=== PATIENT | female | born 1955 | race Caucasian/White ===

== ENCOUNTER 2016-12-31 08:17 | Emergency (ER) | payer BC ==
[~2016-12-31] VITALS: Ht 170.2 cm; Wt 60.0 kg
[~2016-12-31 08:17] MED LIST: ALENDRONATE70 MG PO; ASPIRIN 8181 MG PO; ATENOL/CHLOR1 TA2 PO; BACTRIM DS1 TAB PO; BOOSTRIX IM; CIPROFLOXACN500 MG PO; CLINDAMYCIN300 M1 PO; DOXYCYCL HYC100 MG PO; MECLIZINE25 MG PO; MULTI VITAMN PO; PREDNISONE20 MG PO; PROVENTIL HFA IN; SINGULAIR10 MG PO; TET/DIP TOX1 ML IM; ZOCOR20 M1 PO
[2016-12-31 09:21] LABS: HEMATOCRIT 42.9 % (37.0-47.0); IMMATURE GRANULOCYTES 0.3 % (0.0-1.0); MEAN CELL VOLUME 89.2 fL CALC (80.0-100.0); MEAN CORPUSCULAR HGB 29.1 pG CALC (26.0-32.0); MEAN CORPUSCULAR HGB CONC 32.6 g/L CALC (32.0-36.0); NEUT# 5.44 thou/uL (2.00-7.15); RED BLOOD COUNT 4.81 mill/uL (4.20-5.60); RED CELL DISTRI WIDTH 14.8 % (11.5-15.5)
[2016-12-31 10:05] LABS: ALBUMIN 4.5 g/dL (3.2-5.0); ALKALINE PHOSPHATASE 67 u/l (38-126); ANION GAP 16 (6-22 (CALC)); BILIRUBIN, TOTAL 0.4 mg/dL (0.0-1.4); BUN 14 mg/dL (8-23); BUN/CREATININE RATIO 20 (12-20 (CALC)); CALCIUM 9.6 mg/dL (8.4-10.2); CARBON DIOXIDE 28 mmol/l (22-30); CHLORIDE 97 mmol/l (95-108); CREATININE 0.7 mg/dL (0.5-1.0); GFR > 60 ML/MIN (>=60 (CALC)); GFR FOR AFR.AMER. > 60 ML/MIN (>=60 (CALC)); GLUCOSE 97 mg/dL (82-115); POTASSIUM 3.6 mmol/l (3.5-5.1); SGOT/AST 29 u/l (9-36); SGPT/ALT 22 u/l (11-66); SODIUM 138 mmol/l (137-146)
[2016-12-31] MEDS ORDERED: SINGULAIR10 MG PO (11:17)
[2016-12-31] MEDS ORDERED: XANAX0.25 MG PO (11:17)
[2016-12-31 11:32] VITALS: BP 111/69
[2016-12-31 11:39] LABS: MYOGLOBIN 28 ng/mL (0 - 62)
== END 2016-12-31 11:32 | disposition left against medical advice (07) | DRG 552 ==
LOC: ED 08:17
PROVIDERS: Emergency Medicine
DX: M54.2 Cervicalgia (principal); I10 Essential (primary) hypertension; F41.9 Anxiety disorder, unspecified; F17.210 Nicotine dependence, cigarettes, uncomplicated; Z86.73 Personal history of transient ischemic attack (TIA), and cerebral infarction without residual deficits

== ENCOUNTER 2017-01-04 09:04 | Emergency (ER) | payer BC ==
[~2017-01-04] VITALS: Ht 170.2 cm; Wt 60.0 kg
[~2017-01-04 09:04] MED LIST changes: +XANAX0.25 MG PO
[2017-01-04] MEDS ORDERED: ASPIRIN LOW DOS81 M1 PO (09:48)
[2017-01-04] MEDS ORDERED: ZITHROMAX500 MG PO (09:49)
[2017-01-04] MEDS ORDERED: MULTIVITAMI1 PO (09:49)
[2017-01-04 10:29] LABS: URINE BILIRUBIN - DIPSTICK NEGATIVE (NEGATIVE); URINE BLOOD DIPSTICK TRACE-INTACT (NEGATIVE); URINE COLOR YELLOW; URINE GLUCOSE - DIPSTICK NEGATIVE (NEGATIVE); URINE KETONE NEGATIVE (NEGATIVE); URINE NITRITE - DIPSTICK NEGATIVE (Negative); URINE PH 6.5 (4.5-8.0); URINE PROTEIN - DIPSTICK NEGATIVE (NEG-TRACE); URINE SPECIFIC GRAVITY <=1.005; URINE UROBILINOGEN - DIPSTICK 0.2 E.U./dL (0.2)
[2017-01-04 10:31] LABS: URINE CLARITY CLOUDY; URINE LEUK ESTERASE LARGE (NEGATIVE)
[2017-01-04 10:32] LABS: HEMATOCRIT 41.8 % (37.0-47.0); HEMOGLOBIN 13.8 g/dl (12.0-16.0); IMMATURE GRANULOCYTES 0.1 % (0.0-1.0); MEAN CELL VOLUME 88.6 fL CALC (80.0-100.0); MEAN CORPUSCULAR HGB 29.2 pG CALC (26.0-32.0); NEUT# 3.83 thou/uL (2.00-7.15); RED BLOOD COUNT 4.72 mill/uL (4.20-5.60); RED CELL DISTRI WIDTH 14.7 % (11.5-15.5)
[2017-01-04 10:33] LABS: URINE BACTERIA MODERATE hpf; URINE EPITHELIAL CELLS MANY EPI/hpf (0-FEW); URINE RBC 0-2 RBC/hpf (0-5); URINE WBC 20-50 WBC/hpf (0-5)
[2017-01-04 10:45] LABS: ALBUMIN 4.4 g/dL (3.2-5.0); ALKALINE PHOSPHATASE 67 u/l (38-126); AMYLASE 82 u/l (30-110); ANION GAP 15 (6-22 (CALC)); BILIRUBIN, TOTAL 0.4 mg/dL (0.0-1.4); BUN 11 mg/dL (8-23); BUN/CREATININE RATIO 16 (12-20 (CALC)); CALCIUM 9.8 mg/dL (8.4-10.2); CARBON DIOXIDE 27 mmol/l (22-30); CHLORIDE 102 mmol/l (95-108); CREATININE 0.7 mg/dL (0.5-1.0); GFR > 60 ML/MIN (>=60 (CALC)); GFR FOR AFR.AMER. > 60 ML/MIN (>=60 (CALC)); GLUCOSE 87 mg/dL (82-115); LIPASE 118 u/l (23-300); POTASSIUM 3.8 mmol/l (3.5-5.1); SGOT/AST 20 u/l (9-36); SGPT/ALT 24 u/l (11-66); SODIUM 140 mmol/l (137-146); TOTAL PROTEIN 7.6 g/dL (6.3-8.2)
[2017-01-04 10:56] LABS: MYOGLOBIN 23 ng/mL (0 - 62)
[2017-01-04] MEDS ORDERED: BACTRIM DS1 TAB PO (12:18)
[2017-01-04 12:29] VITALS: BP 130/83
== END 2017-01-04 12:35 | disposition home or self-care (01) | DRG 690 ==
LOC: ED 09:04
PROVIDERS: Emergency Medicine
DX: N39.0 Urinary tract infection, site not specified (principal); I10 Essential (primary) hypertension; Z86.73 Personal history of transient ischemic attack (TIA), and cerebral infarction without residual deficits; F17.210 Nicotine dependence, cigarettes, uncomplicated

== ENCOUNTER 2017-03-09 08:55 | Emergency (ER) | payer SELFPAY ==
[~2017-03-09] VITALS: Ht 170.2 cm; Wt 70.0 kg
[~2017-03-09 08:55] MED LIST changes: +ASPIRIN LOW DOS81 M1 PO; +MULTIVITAMI1 PO; +ZITHROMAX500 MG PO
[2017-03-09 09:32] LABS: HEMATOCRIT 41.5 % (37.0-47.0); HEMOGLOBIN 13.9 g/dl (12.0-16.0); IMMATURE GRANULOCYTES 0.6 % (0.0-1.0); MEAN CELL VOLUME 87.9 fL CALC (80.0-100.0); MEAN CORPUSCULAR HGB 29.4 pG CALC (26.0-32.0); MEAN CORPUSCULAR HGB CONC 33.5 g/L CALC (32.0-36.0); NEUT# 3.91 thou/uL (2.00-7.15); RED BLOOD COUNT 4.72 mill/uL (4.20-5.60)
[2017-03-09 09:40] LABS: ALBUMIN 4.7 g/dL (3.2-5.0); ALKALINE PHOSPHATASE 73 u/l (38-126); ANION GAP 18 (6-22 (CALC)); BILIRUBIN, TOTAL 0.4 mg/dL (0.0-1.4); BUN 11 mg/dL (8-23); BUN/CREATININE RATIO 16 (12-20 (CALC)); CALCIUM 9.8 mg/dL (8.4-10.2); CARBON DIOXIDE 23 mmol/l (22-30); CHLORIDE 103 mmol/l (95-108); CREATININE 0.7 mg/dL (0.5-1.0); ETHYL ALCOHOL 0 mg/dl (0-30); GFR > 60 ML/MIN (>=60 (CALC)); GFR FOR AFR.AMER. > 60 ML/MIN (>=60 (CALC)); GLUCOSE 95 mg/dL (82-115); SGOT/AST 19 u/l (9-36); SGPT/ALT 33 u/l (11-66); SODIUM 140 mmol/l (137-146); TOTAL PROTEIN 7.5 g/dL (6.3-8.2)
[2017-03-09 10:06] LABS: URINE BILIRUBIN - DIPSTICK NEGATIVE (NEGATIVE); URINE BLOOD DIPSTICK SMALL (NEGATIVE); URINE COLOR YELLOW; URINE GLUCOSE - DIPSTICK NEGATIVE (NEGATIVE); URINE KETONE NEGATIVE (NEGATIVE); URINE NITRITE - DIPSTICK NEGATIVE (Negative); URINE PROTEIN - DIPSTICK NEGATIVE (NEG-TRACE); URINE UROBILINOGEN - DIPSTICK 0.2 E.U./dL (0.2)
[2017-03-09 10:17] LABS: URINE CLARITY HAZY; URINE LEUK ESTERASE LARGE (NEGATIVE)
[2017-03-09 10:18] LABS: URINE BACTERIA MODERATE hpf; URINE EPITHELIAL CELLS MODERATE EPI/hpf (0-FEW); URINE WBC 20-50 WBC/hpf (0-5)
[2017-03-09 10:19] LABS: BARBITURATES NEGATIVE (NEGATIVE); COCAINE NEGATIVE (NEGATIVE); METHADONE NEGATIVE (NEGATIVE); OXCYCODONE NEGATIVE (NEGATIVE); TETRAHYDROCANNABIONOL NEGATIVE (NEGATIVE); TRICYLIC ANTIDEPRESSANTS NEGATIVE (NEGATIVE)
[2017-03-09 12:00] LABS: URINE BILIRUBIN - DIPSTICK NEGATIVE (NEGATIVE); URINE BLOOD DIPSTICK TRACE-INTACT (NEGATIVE); URINE CLARITY CLEAR; URINE COLOR YELLOW; URINE GLUCOSE - DIPSTICK NEGATIVE (NEGATIVE); URINE KETONE NEGATIVE (NEGATIVE); URINE LEUK ESTERASE NEGATIVE (NEGATIVE); URINE NITRITE - DIPSTICK NEGATIVE (Negative); URINE PROTEIN - DIPSTICK NEGATIVE (NEG-TRACE); URINE SPECIFIC GRAVITY <=1.005; URINE UROBILINOGEN - DIPSTICK 0.2 E.U./dL (0.2)
[2017-03-09] MEDS ORDERED: CATAPRES0.2 MG PO (12:18)
[2017-03-09 12:25] VITALS: BP 132/81
== END 2017-03-09 12:31 | disposition home or self-care (01) | DRG 103 ==
LOC: ED 08:55
PROVIDERS: Emergency Medicine
DX: R51 Headache (principal); G45.9 Transient cerebral ischemic attack, unspecified; I10 Essential (primary) hypertension; J45.909 Unspecified asthma, uncomplicated; Z87.440 Personal history of urinary (tract) infections

== ENCOUNTER 2017-03-22 07:45 | Emergency (ER) | payer BC ==
[~2017-03-22] VITALS: Ht 170.2 cm; Wt 61.0 kg
[~2017-03-22 07:45] MED LIST changes: +CATAPRES0.2 MG PO
[2017-03-22] MEDS ORDERED: XANAX0.25 MG PO (08:00)
[2017-03-22 09:05] LABS: HEMATOCRIT 43.2 % (37.0-47.0); HEMOGLOBIN 14.5 g/dl (12.0-16.0); IMMATURE GRANULOCYTES 0.1 % (0.0-1.0); MEAN CELL VOLUME 86.9 fL CALC (80.0-100.0); MEAN CORPUSCULAR HGB 29.2 pG CALC (26.0-32.0); MEAN CORPUSCULAR HGB CONC 33.6 g/L CALC (32.0-36.0); NEUT# 5.11 thou/uL (2.00-7.15); RED BLOOD COUNT 4.97 mill/uL (4.20-5.60)
[2017-03-22 09:09] LABS: ALKALINE PHOSPHATASE 58 u/l (38-126); ANION GAP 17 (6-22 (CALC)); BILIRUBIN, TOTAL 0.6 mg/dL (0.0-1.4); BUN 13 mg/dL (8-23); BUN/CREATININE RATIO 19 (12-20 (CALC)); CALCIUM 10.1 mg/dL (8.4-10.2); CARBON DIOXIDE 25 mmol/l (22-30); CHLORIDE 99 mmol/l (95-108); CREATININE 0.7 mg/dL (0.5-1.0); GFR > 60 ML/MIN (>=60 (CALC)); GFR FOR AFR.AMER. > 60 ML/MIN (>=60 (CALC)); GLUCOSE 97 mg/dL (82-115); POTASSIUM 4.5 mmol/l (3.5-5.1); SGOT/AST 30 u/l (9-36); SGPT/ALT 45 u/l (11-66); SODIUM 136 mmol/l (137-146); TOTAL PROTEIN 7.7 g/dL (6.3-8.2)
[2017-03-22 09:15] LABS: URINE BILIRUBIN - DIPSTICK NEGATIVE (NEGATIVE); URINE BLOOD DIPSTICK SMALL (NEGATIVE); URINE COLOR YELLOW; URINE GLUCOSE - DIPSTICK NEGATIVE (NEGATIVE); URINE KETONE NEGATIVE (NEGATIVE); URINE NITRITE - DIPSTICK NEGATIVE (Negative); URINE PROTEIN - DIPSTICK NEGATIVE (NEG-TRACE); URINE UROBILINOGEN - DIPSTICK 0.2 E.U./dL (0.2)
[2017-03-22 09:20] LABS: URINE CLARITY CLOUDY; URINE LEUK ESTERASE LARGE (NEGATIVE)
[2017-03-22 09:21] LABS: URINE WBC 20-50 WBC/hpf (0-5)
[2017-03-22 09:22] LABS: BARBITURATES NEGATIVE (NEGATIVE); COCAINE NEGATIVE (NEGATIVE); METHADONE NEGATIVE (NEGATIVE); OXCYCODONE NEGATIVE (NEGATIVE); TETRAHYDROCANNABIONOL NEGATIVE (NEGATIVE); TRICYLIC ANTIDEPRESSANTS NEGATIVE (NEGATIVE); URINE BACTERIA MODERATE hpf; URINE EPITHELIAL CELLS MANY EPI/hpf (0-FEW)
[2017-03-22 10:23] LABS: URINE BILIRUBIN - DIPSTICK NEGATIVE (NEGATIVE); URINE BLOOD DIPSTICK TRACE-LYSED (NEGATIVE); URINE CLARITY CLEAR; URINE COLOR YELLOW; URINE GLUCOSE - DIPSTICK NEGATIVE (NEGATIVE); URINE KETONE NEGATIVE (NEGATIVE); URINE LEUK ESTERASE NEGATIVE (NEGATIVE); URINE NITRITE - DIPSTICK NEGATIVE (Negative); URINE PH 6.5 (4.5-8.0); URINE PROTEIN - DIPSTICK NEGATIVE (NEG-TRACE); URINE SPECIFIC GRAVITY <=1.005; URINE UROBILINOGEN - DIPSTICK 0.2 E.U./dL (0.2)
[2017-03-22 11:20] VITALS: BP 138/78
== END 2017-03-22 11:25 | disposition home or self-care (01) | DRG 305 ==
LOC: ED 07:45
PROVIDERS: Emergency Medicine
DX: I10 Essential (primary) hypertension (principal); R16.0 Hepatomegaly, not elsewhere classified; F41.9 Anxiety disorder, unspecified; R42 Dizziness and giddiness
CPT/HCPCS: Q9967

== ENCOUNTER 2017-11-12 09:23 | Emergency (ER) | payer BC ==
[~2017-11-12] VITALS: Ht 170.2 cm; Wt 70.0 kg
[2017-11-12 10:05] LABS: HEMATOCRIT 39.8 % (37.0-47.0); HEMOGLOBIN 13.2 g/dl (12.0-16.0); IMMATURE GRANULOCYTES 0.5 % (0.0-1.0); MEAN CORPUSCULAR HGB 29.9 pG CALC (26.0-32.0); MEAN CORPUSCULAR HGB CONC 33.2 g/L CALC (32.0-36.0); NEUT# 7.85 thou/uL (2.00-7.15); RED BLOOD COUNT 4.42 mill/uL (4.20-5.60); RED CELL DISTRI WIDTH 14.9 % (11.5-15.5)
[2017-11-12 10:13] LABS: URINE BILIRUBIN - DIPSTICK NEGATIVE (NEGATIVE); URINE BLOOD DIPSTICK TRACE-INTACT (NEGATIVE); URINE COLOR YELLOW; URINE GLUCOSE - DIPSTICK NEGATIVE (NEGATIVE); URINE KETONE NEGATIVE (NEGATIVE); URINE NITRITE - DIPSTICK NEGATIVE (Negative); URINE PH 7.5 (4.5-8.0); URINE PROTEIN - DIPSTICK NEGATIVE (NEG-TRACE); URINE UROBILINOGEN - DIPSTICK 0.2 E.U./dL (0.2)
[2017-11-12 10:16] LABS: ALBUMIN 4.4 g/dL (3.2-5.0); ALKALINE PHOSPHATASE 75 u/l (38-126); ANION GAP 14 (6-22 (CALC)); BILIRUBIN, TOTAL 0.6 mg/dL (0.0-1.4); BUN 13 mg/dL (8-23); BUN/CREATININE RATIO 16 (12-20 (CALC)); CARBON DIOXIDE 25 mmol/l (22-30); CHLORIDE 106 mmol/l (95-108); CREATININE 0.8 mg/dL (0.5-1.0); GFR > 60 ML/MIN (>=60 (CALC)); GFR FOR AFR.AMER. > 60 ML/MIN (>=60 (CALC)); LIPASE 145 u/l (23-300); SGOT/AST 36 u/l (9-36); SGPT/ALT 31 u/l (11-66); TOTAL PROTEIN 7.1 g/dL (6.3-8.2)
[2017-11-12 10:17] LABS: SODIUM 141 mmol/l (137-146)
[2017-11-12 10:32] LABS: URINE CLARITY CLOUDY; URINE LEUK ESTERASE LARGE (NEGATIVE)
[2017-11-12 10:33] LABS: URINE BACTERIA MODERATE hpf; URINE EPITHELIAL CELLS MODERATE EPI/hpf (0-FEW); URINE RBC 0-2 RBC/hpf (0-5); URINE TRICHOMONAS MODERATE hpf
[2017-11-12] MEDS ORDERED: FLONASE AL50 MCG/ACT IN (10:36)
[2017-11-12] MEDS ORDERED: KLOR-CON SPRIN10 MEQ PO (10:37)
[2017-11-12] MEDS ORDERED: ATENOLOL50 MG PO (10:38)
[2017-11-12] MEDS ORDERED: LIPITOR20 MG PO (10:39)
[2017-11-12] MEDS ORDERED: ONDANSETRON4 MG PO (10:45)
[2017-11-12] MEDS ORDERED: METRONIDAZOL500 MG PO (10:45)
[2017-11-12] MEDS ORDERED: BACTRIM DS1 TAB PO (10:45)
[2017-11-12 10:47] VITALS: BP 141/82
== END 2017-11-12 10:53 | disposition home or self-care (01) | DRG 556 ==
LOC: ED 09:23
PROVIDERS: Family Medicine
DX: M25.512 Pain in left shoulder (principal); A59.00 Urogenital trichomoniasis, unspecified; I10 Essential (primary) hypertension; J45.909 Unspecified asthma, uncomplicated; F17.210 Nicotine dependence, cigarettes, uncomplicated; Z86.73 Personal history of transient ischemic attack (TIA), and cerebral infarction without residual deficits; Z87.440 Personal history of urinary (tract) infections

== ENCOUNTER 2018-01-14 08:05 | Observation (INO) | payer SELFPAY ==
[~2018-01-14] VITALS: Ht 170.2 cm; Wt 68.3 kg
[~2018-01-14 08:05] MED LIST changes: +ATENOLOL50 MG PO; +FLONASE AL50 MCG/ACT IN; +KLOR-CON SPRIN10 MEQ PO; +LIPITOR20 MG PO; +METRONIDAZOL500 MG PO; +ONDANSETRON4 MG PO
--- NOTE | 2018-01-14 08:17 | NUR ---
PATIENT TO ROOM VIA WHEELCHAIER AND PHYSICIAN AT BEDSIDE FOR EVAL
--- NOTE | 2018-01-14 08:30 | NUR ---
IV ESTABLISHED. LABS DRAWN. PT MEDICATED. NOW C/O LERNER AFTER NITRO. PT VERY ANXIOUS, STRESSED. EYES ARE ALWAYS ON MONITOR.
--- NOTE | 2018-01-14 08:38 | NUR ---
PT HEARD YELLING AT HELP DESK OPERATOR. PT STATES SHE IS STRESSED. TOOK 100MG ATENOLOL THIS AM. PRESCRIBED 50MG ATENOLOL PRN. PT IS A SMOKER. EKG COMPLETED. PT DENIES CP AT THIS TIME.
[2018-01-14 09:01] LABS: HEMATOCRIT 41.5 % (37.0-47.0); HEMOGLOBIN 13.6 g/dl (12.0-16.0); IMMATURE GRANULOCYTES 0.3 % (0.0-1.0); MEAN CORPUSCULAR HGB 29.8 pG CALC (26.0-32.0); MEAN CORPUSCULAR HGB CONC 32.8 g/L CALC (32.0-36.0); NEUT# 3.98 thou/uL (2.00-7.15); RED BLOOD COUNT 4.56 mill/uL (4.20-5.60); RED CELL DISTRI WIDTH 15.1 % (11.5-15.5)
--- NOTE | 2018-01-14 09:10 | NUR ---
PT UP TO BATHROOM UNASSISTED.
[2018-01-14 09:23] LABS: ANION GAP 11 (6-22 (CALC)); BUN 11 mg/dL (8-23); BUN/CREATININE RATIO 15 (12-20 (CALC)); CARBON DIOXIDE 27 mmol/l (22-30); CHLORIDE 104 mmol/l (95-108); CREATININE 0.7 mg/dL (0.5-1.0); GFR > 60 ML/MIN (>=60 (CALC)); GFR FOR AFR.AMER. > 60 ML/MIN (>=60 (CALC)); POTASSIUM 4.4 mmol/l (3.5-5.1); SODIUM 137 mmol/l (137-146)
--- NOTE | 2018-01-14 09:57 | NUR ---
PT STATES SHE DID NOT WANT TO BE ADMITTED. DISCUSSED TEST RESULTS & POC WITH PT. PT OK WITH ADMISSION. PT STATES "IT WILL BE MORE STRESSFUL TO STAY BC SHE HAS SO MUCH TO DO AT HOME"
--- NOTE | 2018-01-14 10:18 | NUR ---
RECVING RN DAVID. "NOT READY" AT THIS TIME.
--- NOTE | 2018-01-14 10:19 | NUR ---
PT AWARE OF POC. EXTRA BLANKET GIVEN TO PT. STATES DOESNT HAVE A/C AT HOME.
--- NOTE | 2018-01-14 10:23 | NUR ---
PT ON TELE.
--- NOTE | 2018-01-14 10:35 | NUR ---
Admission Note Report Given to: TANNER Transported by: X Wheelchair Stretcher Transported with: X Nurse Transporter X Patent IV O2 X Road Roller Operator
--- NOTE | 2018-01-14 10:36 | NUR ---
PT TRANSFERED TO [facility] 277 BY WC WITH TELE IN STABLE CONDITION.
--- NOTE | 2018-01-14 10:45 | NUR ---
FROM ER VIA WHEELCHAIR ACCOMPANPANIED BY TANNER CHAPMAN. AMBULATED TO BED WITH STEADY GAIT. RESPS EVEN AND UNLABORED ON ROOM AIR, TELE MONITOR IN PLACE. DENIES PAIN OR DISCOMFORT. ORIENTED TO ROOM AND CALL SYSTEM. SAFETY PRECAUTIONS REINFORCED. BED IN LOWEST POSITION WITH WHEELS LOCKED. CALL LIGHT WITHIN REACH. ENCOURAGED PT TO CALL FOR ANY NEEDS.
[2018-01-14 11:00] VITALS: BP 133/74
--- NOTE | 2018-01-14 12:00 | NUR ---
RESTING IN SEMI FOWLERS. RESPS EVEN AND UNLABORED ON ROOM AIR, TELE MONITOR IN PLACE. DENIES PAIN OR DISCOMFORT. CALL LIGHT WITHIN REACH. WILL CONTINUE TO MONITOR.
[2018-01-14 15:39] VITALS: BP 100/57
--- NOTE | 2018-01-14 16:05 | NUR ---
DR HADDAD AT BEDSIDE, NEW ORDERS RECEIVED.
--- NOTE | 2018-01-14 16:51 | NUR ---
IV site discontinued, cath intact. No edema , no redness, voices no discomfort.
--- NOTE | 2018-01-14 17:03 | NUR ---
Discharge instructions given. Patient verbalizes understanding of same. Discharged in stable condition via Wheelchair to Home with friend. All belongings sent with pt.
== END 2018-01-14 17:05 | disposition home or self-care (01) | DRG 311 ==
LOC: ED 08:05 → ED-I 09:41 → ED 09:53 → MS2 09:54
PROVIDERS: Family Medicine; ADMIT Internal Medicine; ATTEND Internal Medicine
DX: I20.9 Angina pectoris, unspecified (principal); I10 Essential (primary) hypertension; F17.210 Nicotine dependence, cigarettes, uncomplicated; J45.909 Unspecified asthma, uncomplicated; M06.9 Rheumatoid arthritis, unspecified; Z86.12 Personal history of poliomyelitis; Z86.73 Personal history of transient ischemic attack (TIA), and cerebral infarction without residual deficits; Z87.440 Personal history of urinary (tract) infections
CPT/HCPCS: G0378

== ENCOUNTER 2018-03-28 11:31 | Emergency (ER) | payer SELFPAY ==
[~2018-03-28] VITALS: Ht 170.2 cm; Wt 65.1 kg
[2018-03-28] MEDS ORDERED: ASPIRIN81 MG PO (11:42)
[2018-03-28] MEDS ORDERED: MULTIVITAMI3 (11:43)
[2018-03-28 12:16] LABS: HEMATOCRIT 41.9 % (37.0-47.0); HEMOGLOBIN 13.9 g/dl (12.0-16.0); IMMATURE GRANULOCYTES 0.3 % (0.0-5.0); MEAN CELL VOLUME 89.7 fL CALC (80.0-100.0); MEAN CORPUSCULAR HGB 29.8 pG CALC (26.0-32.0); MEAN CORPUSCULAR HGB CONC 33.2 g/L CALC (32.0-36.0); NEUT# 4.1 thou/uL (2.00-7.15); RED BLOOD COUNT 4.67 mill/uL (4.20-5.60); RED CELL DISTRI WIDTH 15.2 % (11.5-15.5)
[2018-03-28 12:28] LABS: ALBUMIN 4.3 g/dL (3.2-5.0); ALKALINE PHOSPHATASE 66 u/l (38-126); ANION GAP 14 (6-22 (CALC)); BILIRUBIN, TOTAL 0.4 mg/dL (0.0-1.4); BUN 9 mg/dL (8-23); BUN/CREATININE RATIO 12 (12-20 (CALC)); CARBON DIOXIDE 26 mmol/l (22-30); CHLORIDE 104 mmol/l (95-108); CREATININE 0.7 mg/dL (0.5-1.0); D-DIMER 0.49 mg/L (0.19-0.60); GFR > 60 ML/MIN (>=60 (CALC)); GFR FOR AFR.AMER. > 60 ML/MIN (>=60 (CALC)); INTERNATIONAL NORMALIZED RATIO 0.9 RATIO (0.7-1.3); LIPASE 177 u/l (23-300); PROTHROMBIN TIME 10.2 SECONDS (9.0-12.5); SGOT/AST 22 u/l (9-36); SGPT/ALT 33 u/l (11-66); SODIUM 140 mmol/l (137-146); TOTAL PROTEIN 7.3 g/dL (6.3-8.2)
[2018-03-28] MEDS ORDERED: PROTONIX40 MG PO (12:44)
[2018-03-28 13:06] VITALS: BP 144/86
== END 2018-03-28 13:14 | disposition home or self-care (01) | DRG 313 ==
LOC: ED 11:31
PROVIDERS: Emergency Medicine
DX: R07.89 Other chest pain (principal); I10 Essential (primary) hypertension; M06.9 Rheumatoid arthritis, unspecified; F17.200 Nicotine dependence, unspecified, uncomplicated; Z86.73 Personal history of transient ischemic attack (TIA), and cerebral infarction without residual deficits; Z87.440 Personal history of urinary (tract) infections; Z86.12 Personal history of poliomyelitis

== ENCOUNTER 2018-05-24 08:31 | Emergency (ER) | payer SELFPAY ==
[~2018-05-24] VITALS: Ht 170.2 cm; Wt 68.0 kg
[~2018-05-24 08:31] MED LIST changes: +ASPIRIN81 MG PO; +MULTIVITAMI3; +PROTONIX40 MG PO
[2018-05-24] MEDS ORDERED: DOXYCYC MONO100 M2 PO (08:53)
[2018-05-24 10:13] LABS: HEMOGLOBIN 14.5 g/dl (12.0-16.0); IMMATURE GRANULOCYTES 0.2 % (0.0-5.0); MEAN CELL VOLUME 87.8 fL CALC (80.0-100.0); MEAN CORPUSCULAR HGB 28.9 pG CALC (26.0-32.0); NEUT# 5.32 thou/uL (2.00-7.15); RED BLOOD COUNT 5.01 mill/uL (4.20-5.60); RED CELL DISTRI WIDTH 14.6 % (11.5-15.5)
[2018-05-24 10:42] LABS: ALBUMIN 4.6 g/dL (3.2-5.0); ALKALINE PHOSPHATASE 71 u/l (38-126); ANION GAP 15 (6-22 (CALC)); BILIRUBIN, TOTAL 0.6 mg/dL (0.0-1.4); BUN 16 mg/dL (8-23); BUN/CREATININE RATIO 20 (12-20 (CALC)); CARBON DIOXIDE 25 mmol/l (22-30); CHLORIDE 98 mmol/l (95-108); CPK 63 u/l (30-165); CREATININE 0.8 mg/dL (0.5-1.0); GFR > 60 ML/MIN (>=60 (CALC)); GFR FOR AFR.AMER. > 60 ML/MIN (>=60 (CALC)); POTASSIUM 4.1 mmol/l (3.5-5.1); SGOT/AST 27 u/l (9-36); SGPT/ALT 41 u/l (11-66); SODIUM 134 mmol/l (137-146); TOTAL PROTEIN 7.8 g/dL (6.3-8.2)
[2018-05-24 10:51] LABS: URINE BILIRUBIN - DIPSTICK NEGATIVE (NEGATIVE); URINE BLOOD DIPSTICK NEGATIVE (NEGATIVE); URINE COLOR YELLOW; URINE GLUCOSE - DIPSTICK NEGATIVE (NEGATIVE); URINE KETONE NEGATIVE (NEGATIVE); URINE LEUK ESTERASE NEGATIVE (NEGATIVE); URINE NITRITE - DIPSTICK NEGATIVE (Negative); URINE PH 7.5 (4.5-8.0); URINE PROTEIN - DIPSTICK NEGATIVE (NEG-TRACE); URINE SPECIFIC GRAVITY 1.015; URINE UROBILINOGEN - DIPSTICK 0.2 E.U./dL (0.2)
[2018-05-24 10:59] LABS: URINE CLARITY CLEAR
[2018-05-24 10:59] LABS: INFLUENZA A NONE DETECTED (NONE DETECT); INFLUENZA B NONE DETECTED (NONE DETECT)
[2018-05-24 11:13] LABS: TSH, 3RD GENERATION 1.22 uIU/mL (0.47 - 4.68)
[2018-05-24 12:06] VITALS: BP 121/81
== END 2018-05-24 12:06 | disposition home or self-care (01) | DRG 948 ==
LOC: ED 08:31
PROVIDERS: Emergency Medicine
DX: R53.1 Weakness (principal); M79.1 Myalgia; H93.13 Tinnitus, bilateral; I10 Essential (primary) hypertension; J45.909 Unspecified asthma, uncomplicated; F17.210 Nicotine dependence, cigarettes, uncomplicated; Z86.73 Personal history of transient ischemic attack (TIA), and cerebral infarction without residual deficits; Z87.440 Personal history of urinary (tract) infections